=== PATIENT | female | born 1955 | race African-American/Black ===

== ENCOUNTER 2019-06-11 07:44 | Day surgery (SDC) | payer MEDICAID ==
[~2019-06-11] VITALS: Ht 177.8 cm; Wt 88.0 kg
[~2019-06-11 07:44] MED LIST: CORREG; HCTZ; INSULIN; NORVASC
[2019-06-11 09:01] LABS: HEMATOCRIT 40.2 % (36.0-48.0); HEMOGLOBIN 13.6 g/dL (12.0-16.0); MEAN CORPUSCULAR HEMOGLOBIN 27.7 pg (28.0-32.0); MEAN CORPUSCULAR VOLUME 82.2 fL (81.0-99.0); PLATELET 236 x1000/uL (130-400); RED CELL DISTRIBUTION WIDTH 15.1 % (11.6-14.6)
[2019-06-11 09:03] LABS: CHLORIDE 104 mEq/L (98-107)
[2019-06-11] MEDS ORDERED: GLIP5TAB12 MT (09:04)
[2019-06-11] MEDS ORDERED: S350 PO (09:04)
[2019-06-11] MEDS ORDERED: AMLO5TAB88 MT (09:04)
[2019-06-11] MEDS ORDERED: METF-416 MT (09:04)
[2019-06-11] MEDS ORDERED: SIMV40TA5 MT (09:04)
[2019-06-11] MEDS ORDERED: LOPE2TAB26 MT (09:04)
[2019-06-11] MEDS ORDERED: BENA20TA10 MT (09:04)
[2019-06-11] MEDS ORDERED: LIDOCAINE HCL 1% 20ML VIAL (Pyxis) INJ ONE (09:18)
[2019-06-11] MEDS ORDERED: IODIXANOL 320MG/ML 100 ML BOTTLE IV ONE (09:18)
[2019-06-11] MEDS ORDERED: FENTANYL CITRATE/PF 50MCG/ML 2ML VIAL ONE (09:41)
[2019-06-11] MEDS ORDERED: MIDAZOLAM HCL 2 MG/2 ML VIAL ONE (09:41)
[2019-06-11] MEDS ORDERED: ACETAMINOPHEN 325MG TABLET PO PRN (10:00)
[2019-06-11] MEDS ORDERED: MORPHINE SULFATE 2 MG/ML CPJ (NOT FOR IM USE) IV PRN (10:00)
[2019-06-11] MEDS ORDERED: ONDANSETRON HCL 4MG/2ML INJ IV PRN (10:00)
[2019-06-11] MEDS ORDERED: NITROGLYCERIN 50MCG/ML 10ML VIAL (CATH LAB) IV ONE (12:00)
[2019-06-11] MEDS ORDERED: HEPARIN SODIUM 1,000 UNIT/1ML VIAL IV ONE (12:00)
[2019-06-11] MEDS ORDERED: NICARDIPINE 100MCG/ML 10ML VIAL (CATH LAB) IV ONE (12:00)
== END 2019-06-11 13:00 | disposition home or self-care (01) ==
LOC: CCL 07:44
PROVIDERS: ATTEND Internal Medicine Cardiovascular Disease
DX: R94.39 Abnormal result of other cardiovascular function study (principal); E11.9 Type 2 diabetes mellitus without complications; I10 Essential (primary) hypertension; E78.5 Hyperlipidemia, unspecified; Z72.0 Tobacco use; Z88.0 Allergy status to penicillin; Z88.2 Allergy status to sulfonamides; Z88.8 Allergy status to other drugs, medicaments and biological substances; Z79.84 Long term (current) use of oral hypoglycemic drugs; Z79.899 Other long term (current) drug therapy
CPT/HCPCS: 36415; 80048; 82962; 85027; 93005; 93458; 99152; C1769; C1887; C1893; J1644; J2250; J3010; J3490; Q9967; G0500